=== PATIENT | male | born 2000 | race Caucasian/White ===

== ENCOUNTER 2018-12-26 21:35 | Emergency (ER) | payer BC ==
[~2018-12-26] VITALS: Ht 180.3 cm; Wt 70.5 kg
[2018-12-26 21:37] VITALS: TEMP 97
[2018-12-27 01:08] LABS: COLLECTION METHOD CLEAN CATCH
[2018-12-27 01:13] LABS: MUCOUS Present /lpf; PH 6 (5-8); SQUAMOUS EPITHELIAL None Seen /hpf; URINE APPEARANCE Clear; URINE BACTERIA None Seen /hpf; URINE BILIRUBIN Negative (NEGATIVE); URINE BLOOD Negative (NEGATIVE); URINE COLOR Yellow; URINE GLUCOSE Negative (NEGATIVE); URINE KETONE Trace (NEGATIVE); URINE LEUKOCYTE ESTERASE Negative (NEGATIVE); URINE NITRATE Negative (NEGATIVE); URINE PROTEIN(semi-quant) Negative (NEGATIVE); URINE RBC 0-2 /hpf; URINE UROBILINOGEN Negative (NEGATIVE)
[2018-12-27 01:28] VITALS: BP 130/75; PULSE 72
[2018-12-27] MEDS ORDERED: DOXYCYCLINE 10100 MG PO (01:35)
== END 2018-12-27 01:56 | disposition home or self-care (01) ==
LOC: COL.ER 21:35
PROVIDERS: Emergency Medicine
DX: N45.1 Epididymitis (principal); F12.90 Cannabis use, unspecified, uncomplicated; F17.210 Nicotine dependence, cigarettes, uncomplicated
CPT/HCPCS: J0696